=== PATIENT | female | born 2000 ===

== ENCOUNTER 2025-01-29 11:27 | Outpatient (CLI) | payer OTHER, SELFPAY | END 2025-01-29 11:28 | disposition home or self-care (01) | LOC: NFLDREF 11:28 | PROVIDERS: Visit Provider Registered Nurse | DX: Z34.93 Encounter for supervision of normal pregnancy, unspecified, third trimester (principal) | CPT/HCPCS: 87491; 87591 ==

== ENCOUNTER 2025-02-12 14:18 | Outpatient (CLI) | payer OTHER, SELFPAY | END 2025-02-12 14:19 | disposition home or self-care (01) | LOC: NFLDREF 02-13 13:38 | PROVIDERS: Visit Provider Midwife | DX: O99.013 Anemia complicating pregnancy, third trimester (principal) | CPT/HCPCS: 82728; 86762; 86787 ==

== ENCOUNTER 2025-02-26 14:07 | Outpatient (CLI) | payer OTHER, SELFPAY ==
[2025-02-27 18:05] LABS: Strep B DNA Probe POSITIVE (Negative)
[2025-02-27 19:02] LABS: Strep B Susceptibility Needed? No
== END 2025-02-26 14:08 | disposition home or self-care (01) ==
LOC: NFLDREF 14:07
PROVIDERS: Visit Provider Advanced Practice Midwife
DX: Z34.83 Encounter for supervision of other normal pregnancy, third trimester (principal)
CPT/HCPCS: 87081; 87653